=== PATIENT | female | born 1990 | race Caucasian/White ===

== ENCOUNTER 2017-10-24 02:17 | Emergency (ER) | payer MEDICAID ==
[2017-10-24] MEDS: Ketorolac 60 MG/2 ML SDV IM ONE ×2 (02:57→03:04)
[2017-10-24] MEDS ORDERED: Ondansetron 4 MG Tab.DIS PO ONE (02:58)
--- NOTE | 2017-10-24 02:58 | EDM.PDOC ---
ED HPI GENERAL MEDICAL PROBLEM - General Chief Complaint: Abdominal Pain Stated Complaint: ABD PAIN Time Seen by Provider: 10/24/17 02:51 Source of Information: Reports: Patient, RN History Limitations: Reports: Other (No old records) - History of Present Illness INITIAL COMMENTS - FREE TEXT/NARRATIVE: 27 yo female from [facility] presents complaining of abdominal pain from endometriosis. Is visiting here for the night. Has doctors in [facility] and [place]. Is just ending her menses for this month. No fever. Had a disagreement with her provider on Tuesday. Is going to work on getting a new doctor soon. Onset: Gradual Onset Date: 10/21/17 Duration: Day(s):, Getting Worse Location: Reports: Generalized Quality: Reports: Ache Severity: Moderate Improves with: Reports: Medication (out of her prescription pain meds.) Worsens with: Reports: None (not taking meds, having her menses) Context: Reports: Other (Hx of endometriosis) Associated Symptoms: Reports: Nausea/Vomiting (no vomiting). Denies: Fever/ Chills, Shortness of Breath Treatments FLIGHT MECHANIC: Reports: Other (see below) (none) lower abdominal pain Pain Score (Numeric/FACES): 8 - Related Data Allergies Allergy/AdvReac Type Severity Reaction Status Date / Time ketorolac [From Toradol] Allergy Rash Verified 10/24/17 03:05 Penicillins Allergy Other Verified 10/24/17 03:05 tramadol Allergy Rash Verified 10/24/17 03:05 trazodone Allergy Agitation Verified 10/24/17 03:05 Home Meds: Home Meds * Control 1 tab PO DAILY 10/24/17 [History] Diclofenac Sodium [Voltaren] 50 mg PO BID 10/24/17 [History] Gabapentin [Neurontin] 300 mg PO TID 10/24/17 [History] Naproxen Sodium [Naproxen Sodium Ds] 550 mg PO Q12HR PRN #10 tablet 10/24/17 [Rx ] Prazosin [Minpress] 1 mg PO BEDTIME 10/24/17 [History] Sertraline [Zoloft] 100 mg PO DAILY 10/24/17 [History] oxyCODONE HCl/Acetaminophen [oxyCODONE-Acetaminophen 5-325] 1 - 2 tab PO QID PRN 10/24/17 [History] tiZANidine [Zanaflex] 2 mg PO TID 10/24/17 [History] ED ROS GENERAL - Review of Systems Review Of Systems: See Below Constitutional: Reports: No Symptoms HEENT: Reports: No Symptoms Respiratory: Reports: Pleuritic Chest Pain (recent onset of LUQ pain with breathing, not severe. ) Cardiovascular: Reports: No Symptoms Endocrine: Reports: No Symptoms GI/Abdominal: Reports: Abdominal Pain. Denies: Constipation, Diarrhea : Reports: Other (menses just ending) Musculoskeletal: Reports: No Symptoms Skin: Reports: No Symptoms Neurological: Reports: No Symptoms ED EXAM, GI/ABD - Physical Exam Exam: See Below Exam Limited By: No Limitations General Appearance: Alert, WD/WN, No Apparent Distress Eyes: Bilateral: Normal Appearance Ears: Normal External Exam, Normal Canal, Hearing Grossly Normal Nose: Normal Inspection, Normal Mucosa, No Blood Throat/Mouth: Normal Inspection, Normal Lips, Normal Oropharynx, Normal Voice, No Airway Compromise Head: Atraumatic, Normocephalic Neck: Normal Inspection, Supple Respiratory/Chest: No Respiratory Distress, Lungs Clear, Normal Breath Sounds, No Accessory Muscle Use Cardiovascular: Regular Rate, Rhythm, No Edema GI/Abdominal Exam: Normal Bowel Sounds, Soft, No Distention, Tender (diffusely) . No: Abnormal Bowel Sounds Extremities: Normal Inspection, Normal Range of Motion, Non-Tender, No Pedal Edema, Mottled Neurological: Alert, Oriented, CN II-XII Intact, Normal Cognition, No Motor/ Sensory Deficits Psychiatric: Normal Affect, Normal Mood Skin Exam: Warm, Dry, Intact, Normal Color, No Rash Lymphatic: No Adenopathy Course - Vital Signs Last Recorded V/S: Last Vital Signs Temp 35.8 C 10/24/17 02:50 Pulse 119 H 10/24/17 02:50 Resp 18 10/24/17 02:50 BP 143/82 H 10/24/17 02:50 Pulse Ox 98 10/24/17 02:50 - Orders/Labs/Meds Meds: Medications Discontinued Medications Generic Name Dose Route Start Last Admin Trade Name Freq PRN Reason Stop Dose Admin Ketorolac Tromethamine 60 mg 10/24/17 02:49 10/24/17 03:04 Toradol IM 10/24/17 02:50 Not Given ONETIME ONE Naproxen 440 mg 10/24/17 03:28 10/24/17 03:37 Naproxen Sodium PO 10/24/17 03:29 440 mg NOW STA Administration Ondansetron HCl 4 mg 10/24/17 02:58 10/24/17 03:04 Zofran Odt PO 10/24/17 02:59 4 mg ONETIME ONE Administration Departure - Departure Time of Disposition: 03:48 Disposition: Home, Self-Care 01 Clinical Impression: Endometriosis Chronic pain Qualifiers: Chronic pain type: other chronic pain Qualified Code(s): G89.29 - Other chronic pain - Discharge Information Prescriptions: Naproxen Sodium [Naproxen Sodium Ds] 550 mg PO Q12HR PRN #10 tablet PRN Reason: Pain Referrals: PCP,None [Primary Care Provider] - Forms: ED Department Discharge
== END 2017-10-24 03:55 | disposition home or self-care (01) ==
LOC: EEVIPCON 02:17 → JP.ED 02:17
DX: N80.9 Endometriosis, unspecified (principal); G89.29 Other chronic pain; Z88.0 Allergy status to penicillin; Z88.5 Allergy status to narcotic agent; Z88.8 Allergy status to other drugs, medicaments and biological substances; Z79.899 Other long term (current) drug therapy
CPT/HCPCS: 99284; A9270; J1885

== ENCOUNTER 2019-01-13 18:50 | Emergency (ER) | payer MEDICAID ==
[2019-01-13] MEDS ORDERED: Dental Adhesive 1 Tube DENT ONE (19:31)
--- NOTE | 2019-01-13 19:34 | EDM.PDOC ---
ED HPI GENERAL MEDICAL PROBLEM - General Chief Complaint: ENT Problem Stated Complaint: TOOTHACHE Time Seen by Provider: 01/13/19 19:14 Source of Information: Reports: Patient History Limitations: Reports: No Limitations - History of Present Illness INITIAL COMMENTS - FREE TEXT/NARRATIVE: poor dental hygeine; multiple fractured teeth states that her right lower jaw has pain; new broken tooth. Using tylenol/ibuprofen without relief. Duration: Day(s): (1) Quality: Reports: Ache, Throbbing Severity: Severe Improves with: Reports: None Worsens with: Reports: Cold Therapy, Eating, Heat Therapy - Related Data Allergies Allergy/AdvReac Type Severity Reaction Status Date / Time ketorolac [From Toradol] Allergy Rash Verified 01/13/19 19:22 Penicillins Allergy Other Verified 01/13/19 19:22 tramadol Allergy Rash Verified 01/13/19 19:22 trazodone Allergy Agitation Verified 01/13/19 19:22 Home Meds: Home Meds Fluticasone Propionate [Flovent HFA] 1 - 2 puff INH ASDIRECTED 01/13/19 [History ] Past Medical History Genitourinary History: Reports: Renal Calculus FORESTRY FIRE AID History: Reports: Endometriosis, Psychiatric History: Reports: Depression - Past Surgical History HEENT Surgical History: Reports: Eye Surgery Female Surgical History: Reports: Lithotripsy/ESWL Social & Family History - Tobacco Use Smoking Status *Q: Current Every Day Smoker Years of Tobacco use: 12 Packs/Tins Daily: 1 - Caffeine Use Caffeine Use: Reports: Soda - Recreational Drug Use Recreational Drug Use: No ED ROS GENERAL - Review of Systems Review Of Systems: ROS reveals no pertinent complaints other than HPI. ED EXAM, GENERAL - Physical Exam Exam: See Below Exam Limited By: No Limitations General Appearance: Alert, WD/WN, No Apparent Distress Throat/Mouth: Normal Lips, Normal Oropharynx, Normal Voice, Other (fractured tooth, lower right jaw, multiple broken teeth, poor dental hygeine.) Head: Atraumatic, Normocephalic Respiratory/Chest: No Respiratory Distress, Lungs Clear, Normal Breath Sounds Cardiovascular: Regular Rate, Rhythm GI/Abdominal: Normal Bowel Sounds, Soft, Non-Tender Neurological: Alert, Oriented, CN II-XII Intact, Normal Cognition, Normal Gait Psychiatric: Normal Affect, Normal Mood Skin Exam: Warm, Dry, Intact, Normal Color Course - Vital Signs Last Recorded V/S: Last Vital Signs Temp 99.1 F 01/13/19 19:19 Pulse 79 01/13/19 19:19 Resp 13 01/13/19 19:19 BP 111/75 01/13/19 19:19 Pulse Ox 97 01/13/19 19:19 - Orders/Labs/Meds Meds: Medications Discontinued Medications Generic Name Dose Route Start Last Admin Trade Name Jimmy PRN Reason Stop Dose Admin Denture Adhesive 1 applic 01/13/19 19:31 01/13/19 19:40 Dentemp Custom DENT 01/13/19 19:32 1 applic ONETIME ONE Administration - Re-Assessments/Exams Free Text/Narrative Re-Assessment/Exam: 01/14/19 11:30 Helped her use dental adhesive; felt almost immediate relief. Free Text/Narrative Re-Assessment/Exam: 01/14/19 11:31 She has no fever, no visible or palpable abscess; she is a restricted patient; states she doesn't have money to get to where she is restricted to. Rx for Keflex given in case of fever or facial swelling. To get into the dentist laureen. Departure - Departure Time of Disposition: 21:30 Disposition: Home, Self-Care 01 Condition: Good Clinical Impression: Jaw pain - Discharge Information *PRESCRIPTION DRUG MONITORING PROGRAM REVIEWED*: Not Applicable *COPY OF PRESCRIPTION DRUG MONITORING REPORT IN PATIENT CELESTE: Not Applicable Instructions: Dental Abscess Referrals: PCP,None [Primary Care Provider] - Forms: ED Department Discharge Additional Instructions: You need to see a dentist; no amount of pain medicine will help with the cracked tooth; If you develop fever, fill the antibiotic i wrote for you. Call with questions. - Problem List & Annotations (1) Jaw pain SNOMED Code(s): 028169153 Code(s): R68.84 - JAW PAIN Status: Acute Priority: Medium - Problem List Review Problem List Initiated/Reviewed/Updated: Yes
== END 2019-01-13 19:50 | disposition home or self-care (01) ==
LOC: JP.ED 18:50
DX: K03.81 Cracked tooth (principal); R68.84 Jaw pain; F17.210 Nicotine dependence, cigarettes, uncomplicated; Z88.0 Allergy status to penicillin; Z88.5 Allergy status to narcotic agent; Z88.6 Allergy status to analgesic agent; Z88.8 Allergy status to other drugs, medicaments and biological substances
CPT/HCPCS: 99282; A9270; 99283